=== PATIENT | female | born 2000 | race Hispanic/Latino ===

== ENCOUNTER 2020-05-08 11:14 | Emergency (ER) | payer OTHER | END 2020-05-08 11:48 | disposition home or self-care (01) | LOC: EDH 11:14 | DX: L02.31 Cutaneous abscess of buttock (principal) ==

== ENCOUNTER → 2021-04-24 | Outpatient (CLI) | payer BC, MEDICAID | END | disposition home or self-care (01) | LOC: SHCH 08:45 | PROVIDERS: ATTEND Internal Medicine Cardiovascular Disease | DX: R06.00 Dyspnea, unspecified (principal); R01.1 Cardiac murmur, unspecified; Z86.16 Personal history of COVID-19 | CPT/HCPCS: 93306; 93356 ==

== ENCOUNTER → 2025-04-04 | Outpatient (CLI) | payer BC, MEDICAID ==
--- NOTE | 2025-04-04 16:14 | HMCIMG ---
US BREAST COMPLETE UNILATERAL REASON: unspecified lump in the right breast, upper inner quadrant COMPARISON: None TECHNIQUE: Right breast ultrasound was performed with attention to the area in question upper inner quadrant. FINDINGS: There is a well-circumscribed mass in the right breast at the 12:00 position. This is 1.7 x 2.0 cm. 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 There is a second small sonolucent nodule in the 8:00 position. This measures 5 x 9 mm. This is well-circumscribed sonolucent but solid, also consistent with fibroadenoma. IMPRESSION: 1. 2 cm mass o'clock position right breast, there is a second 9 mm mass 8:00 position right breast, both appear consistent with fibroadenoma 2. There is a patient history of previous biopsy of the 12:00 mass. 3. The 9 mm 8:00 mass should the evaluated with ultrasound in 6-12 months to confirm stable appearance.
== END | disposition home or self-care (01) ==
LOC: RAH 12:55
PROVIDERS: ATTEND Obstetrics & Gynecology
DX: N63.13 Unspecified lump in the right breast, lower outer quadrant (principal); N63.15 Unspecified lump in the right breast, overlapping quadrants; N63.12 Unspecified lump in the right breast, upper inner quadrant
CPT/HCPCS: 76641